=== PATIENT | female | born 1955 | race Caucasian/White ===

== ENCOUNTER 2018-10-05 21:32 | Emergency (ER) | payer SELFPAY ==
[~2018-10-05] VITALS: Ht 160 cm; Wt 50.0 kg
[~2018-10-05 21:32] MED LIST: CEFD300C37 PO
[2018-10-05 22:15] LABS: BASOPHILS # (AUTO) 0.06 x10^3/uL (0-0.1); BASOPHILS % (AUTO) 1 % (0-1); EOSINOPHILS # (AUTO) 0.15 x10^3/uL (0-0.4); EOSINOPHILS % (AUTO) 1 % (1-7); LYMPHOCYTES # (AUTO) 2.86 x10^3/uL (1-3.4); LYMPHOCYTES % (AUTO) 27 % (22-44); MD NO; MEAN CORPUSCULAR HGB CONC 33.4 g/dL (32.4-35.8); MEAN CORPUSCULAR VOLUME 95.7 fL (80-100); MEAN PLATELET VOLUME 7.1 fL (7.4-10.4); MONOCYTES # (AUTO) 0.78 x10^3/uL (0.2-0.8); MONOCYTES % (AUTO) 7 % (2-9); NEUTROPHILS # (AUTO) 6.64 x10^3/uL (1.8-6.8); NEUTROPHILS % (AUTO) 63 % (42-75); PLATELET COUNT 424 x10^3/uL (130-400); RED CELL DISTRIBUTION WIDTH 13.7 % (9.6-15.2)
--- NOTE | 2018-10-05 22:15 | NUR ---
CARE ASSUMED OF PT. PT C/O COUGH AND CONGESTION X1 WEEK. NON-PRODUCTIVE. STATES NO RELIEF WITH OTC MEDS. NO S/S OF ACUTE DISTRESS. VSS. AWAITING EKG. CALL LIGHT IN REACH AND NO FURTHER NEEDS EXPRESSED.
[2018-10-05 22:27] LABS: ALBUMIN 3.9 g/dL (3.4-5.0); ANION GAP 8 mmol/L (5-15); CALCIUM 9.4 mg/dL (8.5-10.1); CHLORIDE 107 mmol/L (98-107); CREATININE 1.03 mg/dL (0.55-1.02)
[2018-10-05 22:31] LABS: TROPONIN I < 0.015 ng/mL (0.000-0.045)
[2018-10-05 23:12] VITALS: BP 130/86
== END 2018-10-05 23:18 | disposition home or self-care (01) ==
LOC: ED 22:11
DX: R05 Cough (principal)
CPT/HCPCS: 36415; 71045; 80048; 82040; 84484; 85025; 93005; 99284